=== PATIENT | male | born 2000 ===

== ENCOUNTER 2023-10-01 14:23 | Outpatient (AMB) | payer OTHER, SELFPAY ==
[2023-10-01 15:10] VITALS: BP 120/70; PULSE 64; TEMP 36.6; O2SAT 98; BMI 30.4
--- NOTE | 2023-10-01 15:10 | MHC.OFFWIV ---
Intake Vital Signs 10/01/23 15:10 Height 5 ft 8 in Weight 200 lb 4 oz BMI 30.4 BP 120/70 Blood Pressure Location Rt brachial Position Sitting Pulse 64 Pulse Source Pulse Oximeter Temp 97.8 F Temp Source Temporal Artery Scan Pulse Oximetry (%) 98 Intake Visit Reasons: PLACE [facility] [employer]/ear pain([phone]) Intake Note: pt is here for c.o possible left ear infection Patient Tobacco Use Status: Never used Tobacco Allergies No Known Allergies Allergy (Verified 10/01/23 15:10) Do you need a note to return to daycare/school/sports/work: Yes HPI HPI Comments History of Present Illness Details Patient is a 23-year-old male in today for sick visit. He states that for the past 3 days he has developed diminished hearing in his left ear. He denies any pain, or trauma to the area. He has a history of cerumen impaction. Denies any recent fevers, dizziness, headache, chest pain, shortness a breath, vomiting, or diarrhea. PFSH Social History Patient Tobacco Use Status: Never used Tobacco Review of Systems Const Details: Constitutional : No Weight loss, No Fever, No Chills, No Fatigue, No Malaise ENT/Mouth : No sore throat, No Rhinorrhea. Right ear fullness and diminished hearing. Eyes: No Eye Pain, No Swelling, No Redness Cardiovascular : No Chest Pain, No SOB, No Dyspnea on Exertion, No Orthopnea, No Edema, No Palpitations Respiratory : No Cough, No Sputum, No Wheezing Gastrointestinal : No Nausea, No Vomiting, No Diarrhea, No Constipation, No abdominal Pain, No Hematochezia, No Melena Neuro : No Weakness, No Numbness, No Dizziness, No Headache Psych : No Anxiety/Panic, No Depression Heme/Lymph: No Bruising, No Bleeding,No Lymphadenopathy Endocrine : No Polyuria, No Polydipsia All other systems reviewed and are negative Physical Exam Vital Signs: Last Vital Signs Temp 97.8 F 10/01/23 15:10 Pulse 64 10/01/23 15:10 BP 120/70 10/01/23 15:10 Pulse Ox 98 10/01/23 15:10 BMI result Body Mass Index 30.4 Const Other: Appearance: Alert.? Oriented X3.? No acute distress.? Head: Normocephalic, atraumatic, no step-offs or deformities ENT: Pharynx normal.?TM left side intact and pearly padilla. Cerumen impaction of left ear. Neck: Normal inspection.? Neck supple.? CVS: Normal heart rate and rhythm.? Pulses normal.? Respiratory: No respiratory distress.? Breath sounds normal.? Neuro: Oriented X 3.? No motor deficit.? No sensory deficit. CN 2-12 intact In office we were able to remove a significant amount of the impacted cerumen, however, still not able to visualize left TM. Patient states he still feels ear fullness. Assessment & Plan Assessment & Plan (1) Cerumen impaction: Comment: Able to remove significant amount of cerumen from the patient's left ear in office. However, unable to visualize left TM due to remaining cerumen. Patient has been instructed to use ear wax softener drops for the the next 3 days and to return to the walk-in for another ear lavage. Code(s): H61.20 - Impacted cerumen, unspecified ear Qualifiers: Laterality: left Qualified Code(s): H61.22 - Impacted cerumen, left ear Plan: Follow-up with PCP. Plan Take your medications as prescribed. If you were prescribed antibiotics today, it is important that you take your medication to their entirety, do not skip any doses, do not finish them early. Follow-up with your primary care provider this week. Return to the emergency department with new or worsening symptoms. Such as fevers, chills, chest pain, shortness of breath, nausea, vomiting, dizziness, headache, vision changes, lethargy In case of emergency call 911 Coding Level of Care Code New Pt Level 3 (90781) Diagnoses Impacted cerumen of left ear H61.22 Laterality: left Time Spent (min) 15
== END 2023-10-01 15:47 | disposition home or self-care (01) ==
PROVIDERS: Visit Provider Nurse Practitioner Primary Care
DX: H61.22 Impacted cerumen, left ear (principal)
CPT/HCPCS: 99203

== ENCOUNTER 2023-10-29 09:12 | Outpatient (AMB) | payer OTHER, SELFPAY ==
[2023-10-29 09:41] VITALS: BP 120/70; PULSE 87; TEMP 36.4; O2SAT 97; BMI 31.2
--- NOTE | 2023-10-29 09:41 | MHC.OFFWIV ---
Intake Vital Signs 10/29/23 09:41 Height 5 ft 8 in Weight 205 lb BMI 31.2 BP 120/70 Blood Pressure Location Lt brachial Position Sitting Pulse 87 Pulse Source Pulse Oximeter Temp 97.6 F Temp Source Temporal Artery Scan Pulse Oximetry (%) 97 Oxygen Delivery Method Room Air Intake Visit Reasons: EST/quarter sized lump on butt([phone]) Intake Note: pt is here today for quarter sized lump on butt started 1 week ago Patient Tobacco Use Status: Never used Tobacco Allergies No Known Allergies Allergy (Verified 10/29/23 09:51) Do you need a note to return to daycare/school/sports/work: Yes HPI HPI Comments History of Present Illness Details This is a 23-year-old male with no stated past medical history presenting for evaluation of a painful lesion on his right buttock that has been present for approximately 1 year however grew painful and red over the past 1 week. Patient denies having any fevers, chills discharge from the lesion. Patient has not taken any medication for treatment of his discomfort. [facility] Social History Patient Tobacco Use Status: Never used Tobacco Review of Systems Const All systems reviewed & are unremarkable except as noted in HPI and below Denies chills, Denies fever(s) and Denies malaise Musc Reports no additional complaints Skin/Breast Reports lesions and Reports erythema Neuro Reports no additional complaints Physical Exam Vital Signs: Last Vital Signs Temp 97.6 F 10/29/23 09:41 Pulse 87 10/29/23 09:41 BP 120/70 10/29/23 09:41 Pulse Ox 97 10/29/23 09:41 Oxygen Delivery Method Room Air 10/29/23 09:41 BMI result Body Mass Index 31.2 Const General: cooperative, healthy appearing, comfortable, no acute distress, alert and awake Nutritional Appearance: average body habitus Orientation/consciousness: patient oriented x3 Limitations: no limitations Skin Other: 2cm round, fluctuant mildly erythematous nodule located on the superior right buttock, medially; lesion is not adjacent to and does not involve the anus or perineum. Lesions: lesion noted Rashes: no rashes Neuro General: patient oriented x3 Psych Appearance: grossly normal Mental Status: mental status grossly normal Insight: Good insight present (Psych) Judgement: Good judgement present (Psych) Office Procedures Incision and Drainage Details: sebaceous cyst right buttock with cellulitis Incision and drainage performed by: Yanni Hebert Informed consent given: Yes Consent signed: No Time out checklist: patient, procedure, site marked/identified, positioning of patient, supplies available, allergies confirmed and team agrees on procedure Time out staff in room: Yes Time out verified: Yes Time out date: 10/29/23 Time out time: 10:26 Anesthesia: local (2% lidocaine; 1.5mL) Incision with: #10 blade Drainage quality: other (sebum and residual blood) Probed cavity: Yes Culture taken: No Lesion: drainage and induration Lesion size (cm): 2 Hemostasis: pressure Cavity management: irrigated and packing (gauze 0.5 packing placed) Dressing: gauze Patient tolerated procedure: well Complications: No Assessment & Plan Assessment & Plan (1) Infected sebaceous cyst: Code(s): L72.3 - Sebaceous cyst; L08.9 - Local infection of the skin and subcutaneous tissue, unspecified Plan: Incision and drainage is performed in a gauze wick is placed. Plan Gauze packing to stay in for 3 days, patient is comfortable removing himself. Patient is instructed to use warm compresses 3 times daily thereafter. Bactrim b.i.d. x5 days. Follow up only as needed if symptoms worsen. Medications: New sulfamethoxazole-trimethoprim 800-160 mg (Bactrim DS) 1 tab PO BID 10 tabs 0RF Coding Level of Care Code New Pt Level 4 (11851) Diagnoses Infected sebaceous cyst L72.3; L08.9 Time Spent (min) 35
== END 2023-10-29 10:46 | disposition home or self-care (01) ==
PROVIDERS: Visit Provider Physician Assistant
DX: L72.3 Sebaceous cyst (principal); L08.9 Local infection of the skin and subcutaneous tissue, unspecified
CPT/HCPCS: 99204